=== PATIENT | female | born 1955 | race Caucasian/White ===

== ENCOUNTER → 2017-05-21 | Outpatient (CLI) | payer OTHER ==
[~2017-05-21] MED LIST: LIOT5TAB3 PO; RANI150T4 PO
== END | disposition home or self-care (01) ==
LOC: CFH 07:37
PROVIDERS: ATTEND Internal Medicine Cardiovascular Disease
DX: R00.2 Palpitations (principal)
CPT/HCPCS: 78452; 93017; A9502